=== PATIENT | female | born 1945 | race Caucasian/White ===

== ENCOUNTER → 2016-05-06 | Outpatient (CLI) | payer BC ==
--- NOTE | 2016-05-06 15:56 | DIAGNOSTIC IMAGING REPORT ---
LEFT HIP UNILATERAL 2 VIEWS CLINICAL HISTORY: LEFT HIP PAIN pain COMPARISON: None. DISCUSSION: Mild degenerative change left hip joint space. No evidence for acetabular protrusion. No acute cortical abnormality. There is no evidence for soft tissue swelling. IMPRESSION: Mild degenerative change. No acute process. Electronically signed by: John El M.D. 05/06/2016 3:55 PM Dictated Date/Time: 05/06/2016 3:54 PM
[2016-05-06 17:00] LABS: BASO % 0.7 %; BASO ABS # 0.04 K/uL (0-0.2); COMPLETE YES; EOS % 1.2 %; HEMATOCRIT 41.1 % (37-47); IG% 0.2 %; LYMPH % 31.7 %; LYMPH ABS # 1.93 K/uL (1.2-3.4); MEAN CELL VOLUME 91.7 fL (80-100); MEAN CORPUSCULAR HGB CONC 33.8 g/dl (32-36); MEAN PLATELET VOLUME 11.4 fL (7.4-10.4); MONO % 7.2 %; PLATELET COUNT 206 K/uL (130-400); RED BLOOD COUNT 4.48 M/uL (4.2-5.4); WHITE BLOOD COUNT 6.08 K/uL (4.8-10.8)
[2016-05-06 17:27] LABS: BLOOD UREA NITROGEN 19 mg/dl (7-18); BUN/CREATININE RATIO 19.4 (10-20); C-REACTIVE PROTEIN < 0.29 mg/dl (0-0.29); CALCIUM 9.4 mg/dl (8.5-10.1); CARBON DIOXIDE 25 mmol/L (21-32); CHLORIDE 106 mmol/L (98-107); CREATININE 0.99 mg/dl (0.60-1.20); GLUCOSE 140 mg/dl (70-99); POTASSIUM 3.5 mmol/L (3.5-5.1); SODIUM 141 mmol/L (136-145)
[2016-05-06 17:37] LABS: RHEUMATOID FACTOR < 10.0 U/mL (0-15)
[2016-05-06 21:31] LABS: LYME DISEASE AB IGG NEG (NEG); LYME DISEASE AB IGM NEG (NEG)
== END | disposition home or self-care (01) ==
LOC: C.RADBC 15:20
PROVIDERS: ATTEND Nurse Practitioner Family
DX: M25.552 Pain in left hip (principal); E03.9 Hypothyroidism, unspecified; M79.674 Pain in right toe(s)

== ENCOUNTER → 2016-06-24 | Outpatient (CLI) | payer BC ==
--- NOTE | 2016-06-24 12:41 | MAMMOGRAPHY REPORT ---
BILATERAL DIGITAL SCREENING MAMMOGRAM WITH CAD: 06/24/2016 CLINICAL HISTORY: Routine screening. Patient has no complaints. TECHNIQUE: Bilateral CC and MLO views were obtained, with a repeat left CC view after placement of a scar marker and circular mole marker. Current study was also evaluated with a Computer Aided Detec tion (CAD) system. COMPARISON: Comparison is made to exams dated: 06/21/2015 mammogram, 04/20/2013 mammogram, 05/04/2013 u ltrasound, 04/07/2012 mammogram, 03/02/2011 mammogram, and 01/29/2010 mammogram - [facility]. BREAST COMPOSITION: The tissue of both breasts is heterogeneously dense, which may obscure small ma sses. FINDINGS: A linear scar marker overlies the anterior, lateral left breast, denoting a skin scar from prior breast surgery. There is expected architectural distortion in the upper outer middle one thi rd of the left breast, likely related to prior surgery. There are coarse and punctate benign-appear ing microcalcifications scattered bilaterally. No new suspicious mass, architectural distortion or cluster of microcalcifications is seen. IMPRESSION: ACR BI-RADS CATEGORY 1: NEGATIVE There is no mammographic evidence of malignancy. A 1 year screening mammogram is recommended. The p atient will receive written notification of the results. Approximately 10% of breast cancers are not detected with mammography. A negative mammographic repor t should not delay biopsy if a clinically suggestive mass is present. Bonny Gama M.D. ay/:06/24/2016 12:18:01 Corset Fitter: Leah MONAHAN(Kathleen)(Riki), [facility] letter sent: Normal 1/2 BI-RADS Code: ACR BI-RADS Category 1: Negative
== END | disposition home or self-care (01) ==
LOC: C.MAMM 10:02
PROVIDERS: ATTEND Family Medicine
DX: Z12.31 Encounter for screening mammogram for malignant neoplasm of breast (principal)

== ENCOUNTER → 2016-08-19 | Outpatient (CLI) | payer BC ==
[2016-08-20 12:18] LABS: URINE APPEARANCE TURBID (CLEAR); URINE BILIRUBIN NEG (NEG); URINE COLOR YELLOW; URINE EPITHELIAL CELL AUTO 20-30 /lpf (0-5); URINE NITRITE NEG (NEG); URINE SPECIFIC GRAVITY 1.024 (1.000-1.030); UROBILINOGEN NEG (NEG)
[2016-08-20 12:28] LABS: MANUAL MICROSCOPIC REQUIRED? NO; REVIEW REQ? NO
== END | disposition home or self-care (01) ==
LOC: C.LABSPEC 11:31
PROVIDERS: ATTEND Family Medicine
DX: R30.0 Dysuria (principal)

== ENCOUNTER → 2016-10-07 | Outpatient (CLI) | payer BC ==
[2016-10-07 14:58] LABS: URINE APPEARANCE TURBID (CLEAR); URINE BILIRUBIN NEG (NEG); URINE COLOR YELLOW; URINE EPITHELIAL CELL AUTO >30 /lpf (0-5); URINE NITRITE NEG (NEG); URINE SPECIFIC GRAVITY 1.024 (1.000-1.030); UROBILINOGEN NEG (NEG)
[2016-10-07 15:06] LABS: MANUAL MICROSCOPIC REQUIRED? NO; REVIEW REQ? NO
== END | disposition home or self-care (01) ==
LOC: C.LABBC 09:54
PROVIDERS: ATTEND Family Medicine
DX: R31.29 Other microscopic hematuria (principal)

== ENCOUNTER → 2016-10-13 | Outpatient (CLI) | payer BC ==
[2016-10-13 14:33] LABS: URINE APPEARANCE CLEAR (CLEAR); URINE BILIRUBIN NEG (NEG); URINE COLOR YELLOW; URINE NITRITE NEG (NEG); UROBILINOGEN NEG (NEG)
[2016-10-13 14:35] LABS: MANUAL MICROSCOPIC REQUIRED? NO; REVIEW REQ? NO
== END | disposition home or self-care (01) ==
LOC: C.LABBC 09:23
PROVIDERS: ATTEND Family Medicine
DX: N39.0 Urinary tract infection, site not specified (principal)

== ENCOUNTER → 2016-10-29 | Outpatient (CLI) | payer BC ==
--- NOTE | 2016-10-29 09:04 | DIAGNOSTIC IMAGING REPORT ---
(RENAL)RETROPERITON COMP CLINICAL HISTORY: 70 years-old Female presenting with microscopic hematuria.. TECHNIQUE: Real-time grayscale and limited color Doppler ultrasound imaging of the kidneys and bladder was performed. COMPARISON: None. FINDINGS: Right kidney: Normal echogenicity. Right kidney measures 10.3 cm. No hydronephrosis. No convincing evidence of calculus or mass. Normal perfusion. Left kidney: Normal echogenicity. Left kidney measures 10.1 cm. No hydronephrosis. Focal region of anechoic well-defined simple cysts at the lower pole, the largest measuring 1.5 cm. Normal perfusion. Bladder: Incompletely distended. Ureteral jets present. Other: None. IMPRESSION: 1. 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 This can cause hematuria in some patients. No obstruction. Electronically signed by: Flip Stokes M.D. 10/29/2016 9:03 AM Dictated Date/Time: 10/29/2016 9:00 AM
== END | disposition home or self-care (01) ==
LOC: C.ULTR 08:37
PROVIDERS: ATTEND Family Medicine
DX: R31.29 Other microscopic hematuria (principal)

== ENCOUNTER → 2016-10-30 | Outpatient (CLI) | payer BC | END | disposition home or self-care (01) | LOC: C.LABSPEC 14:24 | PROVIDERS: ATTEND Urology | DX: R31.29 Other microscopic hematuria (principal) ==

== ENCOUNTER → 2016-11-05 | Outpatient (CLI) | payer BC ==
[~2016-11-05] MED LIST: OPTIRAY 320 IV PRN
--- NOTE | 2016-11-05 08:41 | DIAGNOSTIC IMAGING REPORT ---
ABD/PELVIS COMBO HISTORY: 70 years-old Female R31.29 Microscopic hematuria COMPARISON: Renal ultrasound 10/29/2016 TECHNIQUE: Multiple axial CT images of the abdomen and pelvis were obtained both with and without the use of 116 mL Optiray 320. A dose lowering technique was used consistent with the principals of GEOVANY. FINDINGS: Mild subsegmental atelectasis is seen within the lung bases. There is no pneumoperitoneum. The imaged inferior cardiac chambers appear enlarged. Mural fatty changes of the left ventricular apex inferior wall suggest prior myocardial infarction. There are scattered subcentimeter low attenuating lesions throughout the right and left hepatic lobes measuring up to 4 mm, nonspecific however suggesting hepatic cysts. Gallbladder, spleen, pancreas and adrenal glands appear normal. There is a punctate nonobstructing calculus of the inferior pole right kidney. No obstructing calculus or hydronephrosis. Urinary bladder is partially collapsed. There are a few renal sinus cysts noted on the left, largest of which measures up to 1.1 x 1.2 cm. Bilateral ureters appear normal without focal filling defects or stricturing. Urinary bladder is collapsed demonstrated a redundant thickened wall, notably anteriorly with mild surrounding stranding. Uterus is unremarkable. There is mild atherosclerotic plaquing of the abdominal aorta. No bulky adenopathy. There is no bowel obstruction. There are a few scattered noninflamed colonic diverticula. The appendix appears normal. Soft tissues are unremarkable. Moderate to severe facet arthrosis involves the lower lumbar spine. Prominent subcortical cystic changes are seen about the left acetabulum. IMPRESSION: 1. Punctate nonobstructing calculus of the inferior pole right kidney. No ureteral calculi or obstructive uropathy. 2. Partially collapsed ureter bladder with thickened irregular wall anteriorly. This may be related to nondistention or underlying pathologic process. Correlate with urinalysis and possibly cystoscopy. 3. Renal sinus cyst in the left are seen measuring up to 1.2 cm. The above report was generated using voice recognition software. It may contain grammatical, syntax or spelling errors. Electronically signed by: Trevor Amezcua M.D. 11/05/2016 8:39 AM Dictated Date/Time: 11/05/2016 8:32 AM
== END | disposition home or self-care (01) ==
LOC: C.CTS 07:59
PROVIDERS: ATTEND Urology
DX: R31.29 Other microscopic hematuria (principal); N20.0 Calculus of kidney; N28.1 Cyst of kidney, acquired

== ENCOUNTER → 2017-06-22 | Outpatient (CLI) | payer BC | END | disposition home or self-care (01) | LOC: C.LABSPEC 17:17 | PROVIDERS: ATTEND Urology | DX: R31.29 Other microscopic hematuria (principal) ==